=== PATIENT | male | born 1945 | race Caucasian/White ===

== ENCOUNTER 2020-12-09 00:45 | Emergency (ER) | payer MEDICARE ==
[2020-12-09 03:08] LABS: HEMOGLOBIN 14.3 gm/dl (14.0-17.5); RED BLOOD COUNT 4.67 M/UL (4.20-5.50)
== END 2020-12-09 09:45 | disposition home or self-care (01) ==
LOC: ER1 00:45
PROVIDERS: Physician Assistant
DX: I82.532 Chronic embolism and thrombosis of left popliteal vein (principal); E11.9 Type 2 diabetes mellitus without complications; E78.5 Hyperlipidemia, unspecified; I11.9 Hypertensive heart disease without heart failure; Z79.01 Long term (current) use of anticoagulants; Z95.0 Presence of cardiac pacemaker; Z85.118 Personal history of other malignant neoplasm of bronchus and lung; Z85.841 Personal history of malignant neoplasm of brain
CPT/HCPCS: 73552; 73590; 80053; 85025; 85610; 85730; 93971; 99284